=== PATIENT | male | born 1965 | race Two or more races ===

== ENCOUNTER 2021-08-04 16:15 | Inpatient (IN) | payer OTHER ==
[~2021-08-04] VITALS: Ht 177.8 cm; Wt 73.5 kg
[2021-08-04] MEDS ORDERED: IV NORMAL SALINE 1000 ML BAG IV ONE ×2 (16:45)
[2021-08-04] MEDS ORDERED: LORAZEPAM 2 MG/1 ML VIAL IV ONE ×2 (16:45→17:45)
[2021-08-04] MEDS ORDERED: LORAZEPAM 2 MG/1 ML VIAL ONE ×2 (16:54→17:59)
--- NOTE | 2021-08-04 17:00 | NUR ---
PT IS IN ROOM #2A. DR DIMAS EVALUATED THE PT.
[2021-08-04 17:10] LABS: HEMATOCRIT 41.7 % (36.7-47.1); MEAN CORPUSCULAR HEMOGLOBIN 32.1 uug (23.8-33.4); MEAN CORPUSCULAR VOLUME 93.7 fL (73.0-96.2); PLATELET COUNT (AUTO) 316 K/uL (152-348)
[2021-08-04 17:14] LABS: CARBON DIOXIDE 26 mmol/L (21-32); CHLORIDE 102 mmol/L (98-107); CREATININE 1.1 mg/dL (0.6-1.3); ETHANOL < 3 MG/DL (0-0); GLUCOSE 102 mg/dL (74-106); POTASSIUM 3.4 mmol/L (3.5-5.1); UREA NITROGEN, BLOOD 15 mg/dL (7-18)
[2021-08-04 17:18] LABS: MAGNESIUM 2.3 mg/dL (1.8-2.4); PHOSPHOROUS 3.4 mg/dL (2.5-4.9)
[2021-08-04 17:19] LABS: ALANINE AMINOTRANSFERASE 30 U/L (16-63); ALKALINE PHOSPHATASE 91 U/L (50-136); ASPARTATE AMINOTRANSFERASE 19 U/L (15-37); BILIRUBIN,DIRECT 0.1 mg/dL (0.0-0.2); BILIRUBIN,TOTAL 0.5 mg/dL (0.2-1.0); TOTAL PROTEIN, SERUM 7.5 g/dL (6.4-8.2)
[2021-08-04] MEDS ORDERED: POTASSIUM CHLORIDE 20 MEQ TAB.PRT.SR PO ONE (17:45)
[2021-08-04] MEDS ORDERED: POTASSIUM CHLORIDE 20 MEQ TAB.PRT.SR ONE (18:00)
[2021-08-04] MEDS ORDERED: ACETAMINOPHEN 325 MG TABLET PO PRN (19:45)
[2021-08-04] MEDS ORDERED: MAGNESIUM HYDROXIDE 30 ML LIQUID UDC PO PRN (19:45)
[2021-08-04] MEDS ORDERED: Z GUARD REMEDY PASTE 57 GM TUBE TOP PRN (19:45)
[2021-08-04] MEDS ORDERED: LORAZEPAM 2 MG/1 ML VIAL IV PRN (19:45)
[2021-08-04] MEDS ORDERED: ONDANSETRON 4 MG/2 ML VIAL IV PRN (19:45)
[2021-08-04] MEDS ORDERED: THIAMINE HCL INJ 100 MG in IV DEXTROSE 5% 50 ML IV SCH (19:45)
[2021-08-04] MEDS ORDERED: FOLIC ACID 1 MG in IV DEXTROSE 5% 50 ML IV SCH (21:00)
[2021-08-04] MEDS ORDERED: CEFTRIAXONE 1 G in IV DEXTROSE 5% 50 ML IV SCH (21:00)
--- NOTE | 2021-08-04 21:03 | NUR ---
Gave report to Letty BELTRAN
[2021-08-04 21:20] VITALS: BP 153/88
[2021-08-04] MEDS ORDERED: CEFTRIAXONE 1 G VIAL ONE (21:33)
[2021-08-04] MEDS ORDERED: THIAMINE HCL 200 MG/2 ML VIAL ONE (21:33)
[2021-08-04] MEDS ORDERED: FOLIC ACID 5 MG/ML VIAL IV ONE (21:34)
[2021-08-04] MEDS: IV NS 1000 ML 1,000 ML IV PRN (21:57)
[2021-08-05] MEDS ORDERED: LORAZEPAM 2 MG/1 ML VIAL IV ONE (02:45)
[2021-08-05 04:00] VITALS: BP 104/60
--- NOTE | 2021-08-05 05:31 | NUR ---
Pt admitted from ER to Tele. Pt denies pain or SOB. Pt able to make needs known but becomes confused at times. Exhibits paranoid behavior and some auditory and visual hallucinations. Ativan given prn to patient. CIWA checked Q4H. IV site intact. No other issues or concerns at this time.
[2021-08-05] MEDS: LORAZEPAM 2 MG/1 ML VIAL IV PRN ×2 (08:16→12:20)
[2021-08-05] MEDS ORDERED: PANTOPRAZOLE SODIUM 40 MG VIAL IV SCH (09:00)
--- NOTE | 2021-08-05 09:00 | NUR ---
pt is axox2 in bed sleeping,vs are stable call light with in reach
[2021-08-05 09:56] LABS: MEAN CORPUSCULAR HEMOGLOBIN 32.1 uug (23.8-33.4); MEAN CORPUSCULAR VOLUME 95.4 fL (73.0-96.2); PLATELET COUNT (AUTO) 296 K/uL (152-348)
[2021-08-05 10:05] LABS: MAGNESIUM 2.2 mg/dL (1.8-2.4); PHOSPHOROUS 2.9 mg/dL (2.5-4.9); POTASSIUM 4.2 mmol/L (3.5-5.1)
[2021-08-05 10:14] LABS: THYROID STIMULATING HORMONE 3.181 mIU/mL (0.358-3.740)
[2021-08-05 11:13] VITALS: BP 115/81
--- NOTE | 2021-08-05 13:00 | NUR ---
pt is getting out of bed pulling the iv reorient the pt to place and time
--- NOTE | 2021-08-05 14:00 | NUR ---
pt is getting confused cut the iv tubing and bleeding all over on the floor and pt is saying he needs to go to the school md made aware and 1;1 orders received put the pt on 1;1
[2021-08-05] MEDS: IV NS 1000 ML 1,000 ML IV PRN (14:20)
--- NOTE | 2021-08-05 14:25 | NUR ---
Clinical Social Work Note Patient is a 56 year old White male who is alert and oriented x4. Patients mood is euthymic and presented with a congruent affect. Patient was able to engage in a meaningful conversation with about his hospitalizations. Patient stated that he drank about 3 bottles of beer last night and when he woke up the next day he had chest pains which lead him to the hospital. Patient denied using alcohol consistently and stated that he drinks occasionally and when he drinks it is 2 beers a day. Patient stated that this time he drank due to grieving the of his mother and having stressed of relocating out of [place]. Patient minimizes his substance use. Patient denied visual and auditory hallucinations. Patient was provided with a brief substance abuse intervention and referred to the following substance abuse programs: [facility] ([phone]); [facility] [address] [place] [address] ([phone]); [place] [address] ([phone]); [facility] ([phone]); [facility] ([phone]); [facility] ([phone]); [facility] ([phone]).
--- NOTE | 2021-08-05 15:35 | NUR ---
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
[2021-08-05] MEDS ORDERED: THIAMINE HCL 100 MG TABLET PO SCH (21:00)
[2021-08-05] MEDS ORDERED: FOLIC ACID 1 MG TABLET PO SCH (21:00)
[2021-08-06] MEDS ORDERED: PANTOPRAZOLE SODIUM 40 MG TABLET.DR PO SCH (07:00)
== END 2021-08-05 15:30 | disposition left against medical advice (07) | DRG 770 ==
LOC: ER 16:18 → TELE3 21:05 → MEDSURG3 08-05 08:27
PROVIDERS: ADMIT Registered Nurse; ATTEND Registered Nurse
DX: F10.239 Alcohol dependence with withdrawal, unspecified (principal); G31.2 Degeneration of nervous system due to alcohol; Y90.0 Blood alcohol level of less than 20 mg/100 ml; F17.210 Nicotine dependence, cigarettes, uncomplicated; F19.10 Other psychoactive substance abuse, uncomplicated; N40.0 Benign prostatic hyperplasia without lower urinary tract symptoms; Z20.822 Contact with and (suspected) exposure to COVID-19
CPT/HCPCS: 36415; 70030-TC; 71045; 83735; 84100; 84443; 85025; 93005; A4663; C9113; G0378; G0480; J0696; J2060; J3411; J3490; J7030; J7060